=== PATIENT | male | born 1955 | race Caucasian/White ===

== ENCOUNTER 2018-12-22 15:09 | Inpatient (IN) | payer MEDICARE, BC ==
[~2018-12-22] VITALS: Ht 177.8 cm; Wt 136.4 kg
[~2018-12-22 15:09] MED LIST: ASPI-496 PO; DULA1.5P SC; ESOM40CA PO; GLIM4TAB2 PO; INSU100I13 SC; METF500T17 PO; OLME1TAB28 PO; SIMV80TA18 PO; TEST1.25 TP
--- NOTE | 2018-12-22 15:31 | NUR ---
PT PRESENTED TO ED AFTER A SYNCOPAL EPISODE WHILE ON THE FREEWAY DRIVING. PT PASSED AOUT AND NEXT TO HIM. PT WITH LEFT ARM AND LEFT SHOULDER PAIN WHILE DRIVING. PT [id number]. PT PLACED ON BP, CARDIAC AND CONT PULSE OXIMETER. EKG DONE AND PRESENTED TO MD. ASSESSMENT COMPLETED.
[2018-12-22 15:42] LABS: BASOPHILS # (AUTO) 0.03 x10^3/uL (0-0.1); BASOPHILS % (AUTO) 0 % (0-1); EOSINOPHILS # (AUTO) 0.21 x10^3/uL (0-0.4); EOSINOPHILS % (AUTO) 3 % (1-7); LYMPHOCYTES # (AUTO) 1.35 x10^3/uL (1-3.4); LYMPHOCYTES % (AUTO) 17 % (22-44); MD NO; MEAN CORPUSCULAR HEMOGLOBIN 32.4 pg (27.5-34.5); MEAN CORPUSCULAR HGB CONC 33.4 g/dL (33.2-36.2); MEAN CORPUSCULAR VOLUME 97.2 fL (81-97); MEAN PLATELET VOLUME 8.9 fL (7.4-10.4); MONOCYTES # (AUTO) 0.53 x10^3/uL (0.2-0.8); MONOCYTES % (AUTO) 7 % (2-9); NEUTROPHILS # (AUTO) 5.66 x10^3/uL (1.8-6.8); NEUTROPHILS % (AUTO) 73 % (42-75); PLATELET COUNT 163 x10^3/uL (130-400); RED BLOOD COUNT 4.82 x10^6/uL (4.38-5.82)
[2018-12-22 15:53] LABS: ALANINE AMINOTRANSFERASE 35 U/L (12-78); ALBUMIN 3.6 g/dL (3.4-5.0); ANION GAP 8 mmol/L (5-15); CALCIUM 8.7 mg/dL (8.5-10.1); CHLORIDE 107 mmol/L (98-107); CREATININE 1.04 mg/dL (0.7-1.3)
[2018-12-22 15:58] LABS: ALKALINE PHOSPHATASE 103 U/L (45-117); BILIRUBIN,TOTAL 0.6 mg/dL (0.2-1.0); TOTAL PROTEIN 6.9 g/dL (6.4-8.2); TROPONIN I < 0.015 ng/mL (0.000-0.045)
--- NOTE | 2018-12-22 16:30 | NUR ---
PT RESTING IN BED.
--- NOTE | 2018-12-22 17:30 | NUR ---
PT RESTING IN BED. AWAITING ADMIT ORDERS.
[2018-12-22] MEDS ORDERED: DAPA1TAB3 PO (17:36)
[2018-12-22] MEDS ORDERED: ESOM40CA PO (17:37)
--- NOTE | 2018-12-22 18:24 | NUR ---
HOSPITALIST AT BEDSIDE.
[2018-12-22] MEDS ORDERED: POLYETHYLENE GLYCOL 17 GM PACKET PO PRN (18:30)
[2018-12-22] MEDS ORDERED: ONDANSETRON ODT 4 MG PO PRN (18:30)
[2018-12-22] MEDS ORDERED: ACETAMINOPHEN 325 MG TABLET PO PRN (18:30)
[2018-12-22 18:36] LABS: HEMOGLOBIN A1C 7.4 % (4.2-6.3)
[2018-12-22 18:54] LABS: FOLATE LEVEL 17.1 ng/mL (3.1-17.5)
--- NOTE | 2018-12-22 19:00 | NUR ---
REPORT RECEIVED FROM TRACI CASTILLO.
--- NOTE | 2018-12-22 19:02 | NUR ---
REPORT GIVEN TO NADYA CASTILLO
--- NOTE | 2018-12-22 19:34 | NUR ---
REPORT GIVEN TO CLINT CASTILLO. ALL QUESTIONS ANSWERED.
[2018-12-22 19:52] VITALS: BP 115/71
[2018-12-22] MEDS: SODIUM CHLORIDE FLUSH 10ML SYR IVF SCH (21:00)
[2018-12-22] MEDS ORDERED: SIMVASTATIN 40 MG TABLET PO SCH (21:00)
[2018-12-22] MEDS: HEPARIN 5,000 UNITS/ML, 1ML SQ SCH (21:13)
[2018-12-23] VITALS (8 sets, daily range): BP systolic 111–127; BP diastolic 72–81
[2018-12-23 05:38] LABS: BASOPHILS # (AUTO) 0.06 x10^3/uL (0-0.1); BASOPHILS % (AUTO) 1 % (0-1); EOSINOPHILS # (AUTO) 0.22 x10^3/uL (0-0.4); EOSINOPHILS % (AUTO) 3 % (1-7); LYMPHOCYTES # (AUTO) 1.46 x10^3/uL (1-3.4); LYMPHOCYTES % (AUTO) 20 % (22-44); MD NO; MEAN CORPUSCULAR HEMOGLOBIN 32.7 pg (27.5-34.5); MEAN CORPUSCULAR HGB CONC 33.3 g/dL (33.2-36.2); MEAN CORPUSCULAR VOLUME 98.1 fL (81-97); MEAN PLATELET VOLUME 9.1 fL (7.4-10.4); MONOCYTES # (AUTO) 0.72 x10^3/uL (0.2-0.8); MONOCYTES % (AUTO) 10 % (2-9); NEUTROPHILS # (AUTO) 4.87 x10^3/uL (1.8-6.8); NEUTROPHILS % (AUTO) 67 % (42-75); PLATELET COUNT 162 x10^3/uL (130-400); RED BLOOD COUNT 4.68 x10^6/uL (4.38-5.82); RED CELL DISTRIBUTION WIDTH 13.9 % (9.4-14.8)
[2018-12-23 05:39] LABS: ALANINE AMINOTRANSFERASE 34 U/L (12-78); ALBUMIN 3.4 g/dL (3.4-5.0); ANION GAP 6 mmol/L (5-15); CALCIUM 8.3 mg/dL (8.5-10.1); CHLORIDE 108 mmol/L (98-107); CREATININE 0.94 mg/dL (0.7-1.3)
[2018-12-23 05:43] LABS: ALKALINE PHOSPHATASE 92 U/L (45-117); BILIRUBIN,TOTAL 0.6 mg/dL (0.2-1.0); TOTAL PROTEIN 6.5 g/dL (6.4-8.2); TROPONIN I < 0.015 ng/mL (0.000-0.045)
[2018-12-23] MEDS: HEPARIN 5,000 UNITS/ML, 1ML SQ SCH ×2 (05:58→12:39)
[2018-12-23] MEDS ORDERED: PANTOPROZOLE 40MG TABLET PO SCH (06:00)
[2018-12-23] MEDS: DAPAGLIFLOZIN HOMEMEDPO SCH ×2 (08:00→16:01)
[2018-12-23] MEDS: METFORMIN HCL HOMEMEDPO SCH ×2 (08:00→16:01)
[2018-12-23] MEDS ORDERED: INSULIN GLARGINE 100 UNITS/ML, PEN SQ-INSULIN SCH (09:00)
[2018-12-23] MEDS ORDERED: SENNA/DOCUSATE TABLET PO SCH (09:00)
[2018-12-23] MEDS ORDERED: ASPIRIN 81 MG TABLET EC PO SCH (09:00)
[2018-12-23] MEDS: SODIUM CHLORIDE FLUSH 10ML SYR IVF SCH (09:00)
[2018-12-23] MEDS ORDERED: HYDROCHLOROTHIAZIDE 25 MG TABLET PO SCH (09:00)
[2018-12-23] MEDS ORDERED: LOSARTAN 50MG TABLET PO SCH (09:00)
[2018-12-23] MEDS ORDERED: TESTOSTERONE HOMETD SCH (09:00)
[2018-12-23 11:18] LABS: TROPONIN I < 0.015 ng/mL (0.000-0.045)
== END 2018-12-23 17:00 | disposition home or self-care (01) | DRG 74 ==
LOC: ED 17:20 → EDIP 18:05 → 4EST 19:44 → DCLOUNGE 12-23 16:50
PROVIDERS: ADMIT Internal Medicine; ATTEND Internal Medicine
DX: G90.8 Other disorders of autonomic nervous system (principal); Z68.41 Body mass index [BMI] 40.0-44.9, adult; E66.01 Morbid (severe) obesity due to excess calories; D75.89 Other specified diseases of blood and blood-forming organs; E11.9 Type 2 diabetes mellitus without complications; E78.5 Hyperlipidemia, unspecified; I10 Essential (primary) hypertension; K21.9 Gastro-esophageal reflux disease without esophagitis; Z79.4 Long term (current) use of insulin; Z82.49 Family history of ischemic heart disease and other diseases of the circulatory system; Z96.652 Presence of left artificial knee joint; Z90.49 Acquired absence of other specified parts of digestive tract; Z23 Encounter for immunization
CPT/HCPCS: 36415; 70450; 71045; 80053; 82607; 82746; 82962; 83036; 84484; 85025; 85379; 90656; 93005; 93306; 93880; 99285; G0378; J1644; J1815

== ENCOUNTER → 2019-03-09 | Outpatient (CLI) | payer MEDICARE ==
[~2019-03-09] MED LIST changes: +DAPA1TAB3 PO; +REGADENOSON 0.4 MG/5 ML SYRINGE ONE
== END | disposition home or self-care (01) ==
LOC: CFH 07:32
PROVIDERS: ATTEND Internal Medicine Cardiovascular Disease
DX: R07.89 Other chest pain (principal); R55 Syncope and collapse; I10 Essential (primary) hypertension; E11.9 Type 2 diabetes mellitus without complications
CPT/HCPCS: 78452; 93017; A9502; J2785

== ENCOUNTER 2019-04-10 08:07 | Day surgery (SDC) | payer MEDICARE ==
[~2019-04-10] VITALS: Ht 177.8 cm; Wt 134.1 kg
[~2019-04-10 08:07] MED LIST changes: -REGADENOSON 0.4 MG/5 ML SYRINGE ONE
[2019-04-10 08:38] VITALS: BP 141/78
[2019-04-10] MEDS ORDERED: LIDOCAINE 2%, 20ML ONE (08:56)
[2019-04-10] MEDS ORDERED: LIDOCAINE 2%, 20ML SQ PRN (09:00)
[2019-04-10] MEDS ORDERED: PLEASE ENTER HEIGHT AND WEIGHT MC SCH (09:00)
== END 2019-04-10 10:20 | disposition home or self-care (01) ==
LOC: CACL 08:07
PROVIDERS: ATTEND Internal Medicine Cardiovascular Disease
DX: I63.9 Cerebral infarction, unspecified (principal); E11.9 Type 2 diabetes mellitus without complications; I10 Essential (primary) hypertension; E78.00 Pure hypercholesterolemia, unspecified; Z79.82 Long term (current) use of aspirin; Z79.4 Long term (current) use of insulin
CPT/HCPCS: 33285; C1764

== ENCOUNTER → 2019-04-23 | Outpatient (CLI) | payer MEDICARE | END | disposition home or self-care (01) | LOC: CFH 12:51 | PROVIDERS: ATTEND Internal Medicine Cardiovascular Disease | DX: I25.10 Atherosclerotic heart disease of native coronary artery without angina pectoris (principal) | CPT/HCPCS: 75571 ==